=== PATIENT | male | born 1995 | race Caucasian/White ===

== ENCOUNTER → 2018-10-12 | Outpatient (CLI) | payer SELFPAY ==
--- NOTE | 2018-10-12 16:27 | REP ---
Right hand series: Four views. History: Right hand pain. Comparison : Four views right hand are compared with the March 10, 2013 prior study. Findings: In the interval since the prior study, growth plates have fused. Overall mineralization pattern remains normal. There is no evidence of fracture or erosive change. Joint spaces are preserved. Impression: Negative radiographs of the right hand. Electronically Signed by Jack Qureshi MD 10/12/2018 04:19 P
== END ==
LOC: M LRY 16:02
PROVIDERS: ATTEND Physician Assistant
DX: S69.91XA Unspecified injury of right wrist, hand and finger(s), initial encounter (principal); W22.8XXA Striking against or struck by other objects, initial encounter; Y92.9 Unspecified place or not applicable

== ENCOUNTER → 2023-10-23 | Outpatient (REF) | LOC: M EMP 10:47 | PROVIDERS: ATTEND Family Medicine | DX: B34.2 Coronavirus infection, unspecified (principal) ==